=== PATIENT | male | born 1970 | race Caucasian/White ===

== ENCOUNTER 2016-08-05 22:16 | Emergency (ER) | payer BC ==
[~2016-08-05 22:16] MED LIST: CARDIZEM CD240 M1 PO; ELIQUIS5 MG PO; FLOVENT 220MCG12 GM IH; GLUCOPHAGE-DPS500 MG PO; LASIX DPS20 MG PO; PRILOSEC DPS20 MG PO; STRATTERA100 MG PO; THERAPEUTIC MUL1 TAB PO; TYLENOL DPS325 MG PO; VENLAFAXINE HC225 MG PO
--- NOTE | 2016-08-08 01:37 | ER ---
ADMIT: 08/05/2016 RM/LOC: [facility] MR#: [id number] [place], [place] [id number] PATITO CAMARA [address] [place] [address] Emergency Room Report SEX: M AGE: 46 : 1970 DATE: 08/05/2016 HISTORY OF PRESENT ILLNESS: The patient is a 46-year-old male, who presents to the emergency room with cough, sore throat for 3 days. He said he had been treated for sinus infection with Omnicef but had to switch to Z-Ravindra as he developed a rash. PAST MEDICAL HISTORY: He also has a history of diabetes type 2, atrial fibrillation, asthma, sleep apnea, ADD, undescended testicle. PAST SURGICAL HISTORY: He had a vasectomy in 2000, back surgery with kyphosis. MEDICATIONS: He was given Benadryl by his at 2145 hours. ALLERGIES: HE IS ALLERGIC TO PENICILLIN AND SULFA. PHYSICAL EXAMINATION: GENERAL: He does have erythema in his right knee in a circular shape. Looks like a blister forming. He is mildly anxious. VITAL SIGNS: Blood pressure 141/61, heart rate 92, respirations 18, temp 99, O2 sats 93%. ABDOMEN: Distended, tympanic. CVS: Irregularly irregular. SKIN: Right leg rash, anterior right leg with erythema. He also has his fingers from the base up to the tip erythematous and swollen and itchy, he said. HEENT: He also complains of a sore throat. Upon examination, his throat is patent, clear. No erythema noted. No exudates. CLINICAL IMPRESSION: Medication allergy reaction. EMERGENCY DEPARTMENT COURSE: Advised not to be able to take cephalosporin, has same reaction as a penicillin allergy. He also complained of his distention of the abdomen, unable to have a bowel movement today. X-ray shows stool present. He was given Decadron IM after consultation with Dr. Orozco to help him with his allergic reaction and also a DuoNeb for his cough. I also wrote for albuterol MDI for him. Encouraged to follow up with Dr. Hernandez. No cephalosporin or penicillin antibiotic. Continue his Z-Ravindra. MiraLax regularly to avoid constipation. May take some Benadryl in a couple of hours. OBDULIO Heredia / Aleksandr Orozco MD / michele JOB #: [id number] CC: Aleksandr Orozco MD, Attending Physician Josefina Hernandez MD, Family Physician
== END 2016-08-06 01:25 | disposition home or self-care (01) ==
LOC: ER 22:16
DX: R21 Rash and other nonspecific skin eruption (principal); T36.1X5A Adverse effect of cephalosporins and other beta-lactam antibiotics, initial encounter; K59.00 Constipation, unspecified; J02.9 Acute pharyngitis, unspecified; E11.9 Type 2 diabetes mellitus without complications; I48.91 Unspecified atrial fibrillation; J45.909 Unspecified asthma, uncomplicated; Z88.0 Allergy status to penicillin; Z88.2 Allergy status to sulfonamides